=== PATIENT | female | born 1995 | race Native Hawaiian/Other Pacific Islander ===

== ENCOUNTER 2016-11-07 21:50 | Outpatient (CLI) | payer OTHER | END 2016-11-07 21:56 | disposition short-term general hospital (02) | LOC: AMB 21:50 | DX: N93.8 Other specified abnormal uterine and vaginal bleeding (principal); T19.2XXA Foreign body in vulva and vagina, initial encounter | CPT/HCPCS: A0425; A0429 ==

== ENCOUNTER 2016-11-07 21:57 | Emergency (ER) | payer OTHER ==
[~2016-11-07] VITALS: Ht 160 cm; Wt 52.2 kg
[2016-11-07 23:50] LABS: PLATELET COUNT 280 K/uL (152-353)
== END 2016-11-08 01:59 | disposition left against medical advice (07) ==
LOC: ED 21:57
PROVIDERS: Emergency Medicine
DX: N93.8 Other specified abnormal uterine and vaginal bleeding (principal); T19.2XXA Foreign body in vulva and vagina, initial encounter
CPT/HCPCS: 36415; 80307; 81000; 81025; 85027; 99283; G0479

== ENCOUNTER 2021-08-30 13:13 | Emergency (ER) | payer OTHER ==
[~2021-08-30] VITALS: Ht 160 cm; Wt 59.0 kg
[2021-08-30 13:13] VITALS: TEMP 98.8
[2021-08-30 14:23] LABS: PLATELET COUNT 275 K/uL (152-353)
[2021-08-30 14:37] LABS: POTASSIUM 4.4 mmol/L (3.6-5.2)
[2021-08-30 14:42] LABS: PARTIAL THROMBOPLASTIN TIME 26.1 SECONDS (24.5-33.6)
[2021-08-30 15:23] VITALS: BP 96/63
== END 2021-08-30 16:00 | disposition home or self-care (01) ==
LOC: ED 13:13
PROVIDERS: Hospitalist
DX: R41.82 Altered mental status, unspecified (principal); F19.10 Other psychoactive substance abuse, uncomplicated; O23.32 Infections of other parts of urinary tract in pregnancy, second trimester; N39.0 Urinary tract infection, site not specified; Z3A.18 18 weeks gestation of pregnancy
CPT/HCPCS: 36415; 80053; 80307; 80320; 81000; 81025; 82550; 82948; 83880; 84484; 84702; 85027; 85610; 85730; 87077; 87086; 87088; 87186; 93005; 96360; 96365; 99284; J0696

== ENCOUNTER 2022-09-22 16:12 | Emergency (ER) | payer OTHER ==
[~2022-09-22] VITALS: Ht 160 cm; Wt 59.0 kg
[2022-09-22 16:12] VITALS: TEMP 97.6
[2022-09-22 19:43] LABS: PLATELET COUNT 268 K/uL (152-353)
[2022-09-22 20:00] VITALS: BP 100/61
[2022-09-22 20:02] LABS: POTASSIUM 3.2 mmol/L (3.6-5.2)
== END 2022-09-22 20:00 | disposition home or self-care (01) ==
LOC: ED 16:12
PROVIDERS: Family Medicine
DX: T50.901A Poisoning by unspecified drugs, medicaments and biological substances, accidental (unintentional), initial encounter (principal); J96.00 Acute respiratory failure, unspecified whether with hypoxia or hypercapnia; Z87.891 Personal history of nicotine dependence; F10.90 Alcohol use, unspecified, uncomplicated; F19.90 Other psychoactive substance use, unspecified, uncomplicated
CPT/HCPCS: 36415; 80053; 80320; 85027; 99283